=== PATIENT | male | born 1995 | race Two or more races ===

== ENCOUNTER 2018-12-22 11:59 | Emergency (ER) | payer SELFPAY ==
[~2018-12-22] VITALS: Ht 170.2 cm; Wt 65.8 kg
[2018-12-22 12:17] VITALS: BP 110/50
--- NOTE | 2018-12-22 12:25 | NUR ---
ED Nurse Note: patient walked into ED due to swelling on the right leg. patient reports that this morning, he felt something weird on the right toes, something felt like itchiness, and then it started to have edema. patient also states that he has numbness on the right lower leg. alert and awake x 4, ambulatory.
--- NOTE | 2018-12-22 12:52 | Emergency Room Report ---
History of Present Illness General Chief Complaint: Edema Source: Patient Present Illness HPI 23-year-old male patient presents the ER complaining of right ankle swelling and numbness for the past 2 hours. Reports he was walking when he suddenly felt pain in his right ankle and noticed swelling in his foot that slowly moved towards his ankle. Reports the pain radiate up to his knee. Denies acute injury or accident. Denies history of heart disease. Denies taking blood thinner medications. Denies recent travel. Denies smoking cigarettes or recent marijuana use. Denies alcohol use. Denies history of heart disease or CHF. Denies other aggravating or relieving factors. Allergies: Coded Allergies: No Known Allergies (Unverified , 12/22/18) Patient History Past Medical History: see triage record Reviewed Nursing Documentation: PMH: Agreed; PSxH: Agreed Nursing Documentation-PMH Past Medical History: No History, Except For Review of Systems All Other Systems: negative except mentioned in HPI Physical Exam Vital Signs Date Time Temp Pulse Resp B/P (MAP) Pulse Ox O2 Delivery O2 Flow Rate FiO2 12/22/18 12:17 97.9 74 19 110/50 100 Room Air Sp02 EP Interpretation: reviewed, normal General Appearance: well appearing, no apparent distress, alert, GCS 15, non- toxic Head: normocephalic, atraumatic Eyes: bilateral eye normal inspection, bilateral eye PERRL ENT: hearing grossly normal, normal pharynx, no angioedema, normal voice, uvula midline, moist mucus membranes Neck: full range of motion Respiratory: lungs clear, normal breath sounds, no rhonchi, no respiratory distress, no accessory muscle use, no wheezing, speaking full sentences Cardiovascular #2: 2+ dorsalis pedis (R), 2+ dorsalis pedis (L) Musculoskeletal: back normal, digits/nails normal, gait/station normal, normal range of motion, swelling - Mild edema over left medial ankle anterior to malleolus, other - NVI, cap refill less than 2 seconds, sensation intact light touch, no pallor, foot not cold to touch, no erythema, no gouty tophi, negative syndemostic squeze, no warmth to touch, tender - Right foot and ankle Neurologic: alert, oriented x3, responsive, motor strength/tone normal, sensory intact Medical Decision Making PA Attestation Dr. Nichols is my supervising Physician whom patient management has been discussed with. Diagnostic Impression: Primary Impression: Ankle effusion ER Course Pt. presents to the ED c/o ankle pain and swelling. Ddx considered but are not limited to fracture, sprain, strain, contusion, dislocation. No erythema, no warmth to touch, no fever, nontoxic appearing, low suspicion for septic joint. Soft compartments, no pulselessness, no pallor, no paresthesias, low suspicion for compartment syndrome at this time. Vital signs: are WNL, pt. is afebrile Ordered X-ray and pain medication. ER COURSE Provided with pain medication. Venous duplex US of right lower extremity shows negative for DVT, edema of medial right ankle. X-ray of the right foot shows no acute disease per the preliminary reading. An X-ray of the right ankle shows no acute fracture, small amount of soft tissue swelling medially. No overlying erythema or edema, low suspicion for cellulitis or abscess, does not require antibiotic treatment at this time. MP wrap was applied to the right ankle and was checked afterwards by me showing good alignment and support with distal neurovascular functioning intact. Crutches provided. Patient instructed on RICE method: rest, ice, compression, elevation. Patient instructed on rest, ice and heat. Patient instructed to be WBAT Contact information for orthopedic urgent care provided, follow-up with urgent care if unable to followup with primary care provider and get referral to pals specialist. Followup with primary care provider. Discuss referral to ortho/pain management/ PT as needed. Discuss further imaging with MRI/CT as needed. Reports pain symptoms improve while in the ER. Provided with contact information for pals specialist. ER precautions given. DISCHARGE: At this time pt. is stable for d/c to home. Patient is resting comfortably, in no acute distress, nontoxic appearing, talking without difficulty. Will provide printed patient care instructions, and any necessary prescriptions. Patient instructed to follow with primary care provider in 3 - 5 days and to request further follow-up as needed. Care plan and follow up instructions have been discussed with the patient prior to discharge. Take medications as directed. Patient questions asked and answered. Patient reports understanding and agreement to treatment plan. ER precautions given, patient instructed to return to ER immediately for any new or worsening of symptoms. - Please note that this Emergency Department Report was dictated using [employer]ique^It software, occasionally this can lead to erroneous entry secondary to interpretation by the dictation equipment. Other X-Ray Diagnostic Results Other X-Ray Diagnostic Results #1: X-Ray ordered: right ankle # of Views/Limited Vs Complete: 3 View Indication: Pain EP Interpretation: Yes PA Xray: Interpretation reviewed, by supervising MD, and agrees with findings. Interpretation: no dislocation, no fractures, other - Soft tissue swelling over medial malleolus Impression: No acute disease LANA Scribe Nevin Rhodes PA-C Other X-Ray Diagnostic Results #2: X-Ray ordered: Right foot # of Views/Limited Vs Complete: 3 View Indication: Pain EP Interpretation: Yes PA Xray: Interpretation reviewed, by supervising MD, and agrees with findings. Interpretation: no dislocation, no soft tissue swelling, no fractures Impression: No acute disease LANA RamirezibBryanna Rhodes PA-C CT/MRI/US Diagnostic Results CT/MRI/US Diagnostic Results : Imaging Test Ordered: Right lower extremity venous duplex ultrasound Impression Negative for evidence of right lower extremity venous thrombosis Edema of the medial right ankle, etiology/significance uncertain Last Vital Signs Date Time Temp Pulse Resp B/P (MAP) Pulse Ox O2 Delivery O2 Flow Rate FiO2 12/22/18 12:33 74 19 Room Air 12/22/18 12:17 97.9 110/50 100 Status: improved Disposition: HOME, SELF-CARE Condition: Stable Scripts Ibuprofen* (MOTRIN*) 600 Mg Tablet 600 MG ORAL Q8H PRN for For Pain, #30 TAB 0 Refills Prov: Rene Rhodes 12/22/18 Patient Instructions: Ankle Pain, Edema, [id number] Additional Instructions: Patient instructed to follow up with primary care provider and discuss further referral to orthopedics/physical therapy/pain management as needed. If unable to followup with PCP, followup with orthopedic urgent care in 5-7 days , call to schedule appointment. Patient instructed on RICE method: rest, ice, compression, elevation. Patient instructed to WBAT. Take medications as directed. Patient questions asked and answered. ER precautions given, patient instructed to return to ER immediately for any new or worsening of symptoms. [facility] [address] [address] [address] [facility], [address] [email or web address] Rene Rhodes Dec 22, 2018 12:52
--- NOTE | 2018-12-22 13:10 | NUR ---
ED Nurse Note: patient is getting Venous duplex done by the bedside
[2018-12-22] MEDS ORDERED: IBUPROFEN600 MG ORAL (13:37)
--- NOTE | 2018-12-22 13:45 | NUR ---
ED Nurse Note: Sage/LANA orderd to apply Terrence wrap and crutches.
[2018-12-22 13:52] VITALS: BP 118/75
--- NOTE | 2018-12-22 13:52 | NUR ---
ER DISCHARGE NOTE: Patient is cleared to be discharged per Irina, pt is aox4, on room air, with stable vital signs. pt was given dc and prescription instructions including ho wto use his crutches, pt was able to verbalize understanding, pt id band removed pt is able to ambulate with crutches. pt took all belongings.
--- NOTE | 2018-12-22 14:18 | Diagnostic Imaging Report ---
Indication: Right leg pain Technique: Grayscale duplex images of the right lower extremity deep veins Comparison: none Findings: On the right, grayscale duplex images demonstrate no evidence of intraluminal thrombus. Normal phasic Doppler waveforms, demonstrating normal augmentation response and no evidence of valvular insufficiency. Normal compressibility of all deep venous structures. There is edema of the soft tissues of the medial right ankle, without definite discrete fluid collection. Impression: Negative for evidence of right lower extremity venous thrombosis Edema of the medial right ankle, etiology/significance uncertain
--- NOTE | 2018-12-22 14:19 | Diagnostic Imaging Report ---
Indication: Right foot pain Technique: 3 views right foot Comparison: none Findings: There is mild hallux valgus and metatarsus adductus, minimal early degenerative changes of the first metatarsophalangeal joint. No acute fractures. No dislocations. The joint spaces are preserved. Impression: No acute bony trauma
--- NOTE | 2018-12-22 14:20 | Diagnostic Imaging Report ---
Indication: Ankle pain Technique: 3 views of the right ankle Comparison: none Findings: There is medial mild soft tissue swelling. No acute fractures. No dislocations. The joint spaces are preserved Impression: Soft tissue swelling medially. Nonspecific, could indicate medial ligamentous injury. No acute bony trauma
== END 2018-12-22 13:52 | disposition home or self-care (01) ==
LOC: EMR 12:50
DX: M25.461 Effusion, right knee (principal)
CPT/HCPCS: 93971; 99283